=== PATIENT | female | born 1945 | race Caucasian/White ===

== ENCOUNTER 2017-04-20 09:19 | Outpatient (CLI) | payer MEDICARE | END 2017-04-20 09:20 | disposition home or self-care (01) | LOC: LAB.F 09:19 | PROVIDERS: ATTEND Obstetrics & Gynecology | DX: C56.1 Malignant neoplasm of right ovary (principal) | CPT/HCPCS: 36415; 86304 ==

== ENCOUNTER → 2017-05-25 | Outpatient (CLI) | payer MEDICARE ==
[2017-05-25 18:55] LABS: CALCIUM 9.4 mg/dL (8.5-10.3); CREATININE 1.7 mg/dL (0.4-1.0); POTASSIUM 4.2 mmol/L (3.5-5.0)
== END ==
LOC: LAB.F 08:00
PROVIDERS: ATTEND Internal Medicine Nephrology
DX: I12.9 Hypertensive chronic kidney disease with stage 1 through stage 4 chronic kidney disease, or unspecified chronic kidney disease (principal); N18.3 Chronic kidney disease, stage 3 (moderate); E11.9 Type 2 diabetes mellitus without complications; E87.5 Hyperkalemia; E55.9 Vitamin D deficiency, unspecified; E21.3 Hyperparathyroidism, unspecified; D64.9 Anemia, unspecified; E78.5 Hyperlipidemia, unspecified
CPT/HCPCS: 36415; 80069

== ENCOUNTER 2017-06-03 10:22 | Outpatient (CLI) | payer MEDICARE ==
[2017-06-03 18:34] LABS: BASOPHILS % (AUTO) 0.6 %; EOSINOPHILS # (AUTO) 0.2 10^3/uL (0.0-0.7); EOSINOPHILS % (AUTO) 3.2 %; HCT - HEMATOCRIT 27.8 % (37.0-47.0); HGB - HEMOGLOBIN 9.4 g/dL (12.0-16.0); LYMPHOCYTES # (AUTO) 1.6 10^3/uL (1.5-3.5); LYMPHOCYTES % (AUTO) 24.9 %; MEAN CORPUSCULAR HGB CONC 33.7 g/dL (32.0-36.0); MEAN CORPUSCULAR VOLUME 106.6 fL (81.0-99.0); MEAN PLATELET VOLUME 9.6 fL (7.9-10.8); MONOCYTES # (AUTO) 0.8 10^3/uL (0.0-1.0); MONOCYTES % (AUTO) 11.8 %; NEUTROPHILS # (AUTO) 3.9 10^3/uL (1.5-6.6); NEUTROPHILS % (AUTO) 59.5 %; RED BLOOD COUNT 2.61 10^6/uL (4.20-5.40); RED CELL DISTRIBUTION WIDTH 15.4 % (12.0-15.0); UNCORRECTED WHITE BLOOD COUNT 6.5 x10^3/uL; WHITE BLOOD COUNT 6.5 x10^3/uL (4.8-10.8)
[2017-06-03 18:36] LABS: ALBUMIN/GLOBULIN RATIO 1.1 (1.0-2.2); BILIRUBIN,TOTAL 0.5 mg/dL (0.2-1.0); BUN - BLOOD UREA NITROGEN 37 mg/dL (6-20); CALCIUM 9.6 mg/dL (8.5-10.3); CARBON DIOXIDE - CO2 25 mmol/L (21-32); CHLORIDE 103 mmol/L (101-111); CHOL/HDL RATIO 3.7 (<4.4); CHOLESTEROL 144 mg/dL; CREATININE 1.3 mg/dL (0.4-1.0); GFR - MDRD 40 (>89); GLUCOSE 104 mg/dL (70-100); HDL CHOLESTEROL 39 mg/dL; LDL/HDL RATIO 1.7 (<4.4); PHOSPHORUS 4.6 mg/dL (2.5-4.6); POTASSIUM 4.6 mmol/L (3.5-5.0); SODIUM 137 mmol/L (135-145); TOTAL PROTEIN 7.8 g/dL (6.7-8.2); TRIGLYCERIDES 191 mg/dL; URIC ACID 4.6 mg/dL (2.6-7.2); VLDL CHOLESTEROL 38 mg/dL
[2017-06-03 19:35] LABS: HEMOGLOBIN A1C 0.44 g/dL
== END 2017-06-03 10:23 | disposition home or self-care (01) ==
LOC: LAB.F 10:22
PROVIDERS: ATTEND Internal Medicine Nephrology
DX: C56.1 Malignant neoplasm of right ovary (principal); N18.3 Chronic kidney disease, stage 3 (moderate); E11.9 Type 2 diabetes mellitus without complications; I12.9 Hypertensive chronic kidney disease with stage 1 through stage 4 chronic kidney disease, or unspecified chronic kidney disease; E87.5 Hyperkalemia; E55.9 Vitamin D deficiency, unspecified; E21.3 Hyperparathyroidism, unspecified; D64.9 Anemia, unspecified; E78.5 Hyperlipidemia, unspecified; K80.20 Calculus of gallbladder without cholecystitis without obstruction
CPT/HCPCS: 36415; 80053; 80061; 80069; 82306; 82570; 83036; 83970; 84156; 84550; 85025; 86304

== ENCOUNTER 2017-07-04 11:29 | Outpatient (CLI) | payer MEDICARE | END 2017-07-04 11:30 | disposition home or self-care (01) | LOC: LAB.F 11:29 | PROVIDERS: ATTEND Obstetrics & Gynecology | DX: C56.1 Malignant neoplasm of right ovary (principal) | CPT/HCPCS: 36415; 86304 ==

== ENCOUNTER 2018-01-27 11:26 | Outpatient (CLI) | payer MEDICARE ==
[2018-01-27 17:53] LABS: BASOPHILS % (AUTO) 0.7 %; EOSINOPHILS # (AUTO) 0.1 10^3/uL (0.0-0.7); EOSINOPHILS % (AUTO) 1.6 %; HGB - HEMOGLOBIN 9.6 g/dL (12.0-16.0); LYMPHOCYTES # (AUTO) 1.8 10^3/uL (1.5-3.5); LYMPHOCYTES % (AUTO) 38.1 %; MEAN CORPUSCULAR HEMOGLOBIN 34.3 pg (27.0-31.0); MEAN CORPUSCULAR HGB CONC 32.6 g/dL (32.0-36.0); MEAN CORPUSCULAR VOLUME 105.3 fL (81.0-99.0); MEAN PLATELET VOLUME 9.3 fL (7.9-10.8); MONOCYTES # (AUTO) 0.3 10^3/uL (0.0-1.0); MONOCYTES % (AUTO) 6.2 %; NEUTROPHILS # (AUTO) 2.6 10^3/uL (1.5-6.6); NEUTROPHILS % (AUTO) 53.4 %; PLT - PLATELET COUNT 136 10^3/uL (130-450); RED BLOOD COUNT 2.81 10^6/uL (4.20-5.40); WHITE BLOOD COUNT 4.8 x10^3/uL (4.8-10.8)
[2018-01-27 18:22] LABS: ALBUMIN 3.5 g/dL (3.2-5.5); ALKALINE PHOSPHATASE 53 IU/L (42-121); ALT ALANINE AMINOTRANSFERASE 23 IU/L (10-60); AST ASPARTATE AMINOTRANSFERASE 21 IU/L (10-42); BILIRUBIN,TOTAL 0.4 mg/dL (0.2-1.0); BUN - BLOOD UREA NITROGEN 48 mg/dL (6-20); CALCIUM 9.9 mg/dL (8.5-10.3); CARBON DIOXIDE - CO2 28 mmol/L (21-32); CHLORIDE 99 mmol/L (101-111); CHOL/HDL RATIO 3.9 (<4.4); CHOLESTEROL 177 mg/dL; CREATININE 1.3 mg/dL (0.4-1.0); GFR - MDRD 40 (>89); GLUCOSE 128 mg/dL (70-100); HDL CHOLESTEROL 45 mg/dL; LDL CHOLESTEROL,CALCULATED 72 mg/dL; LDL/HDL RATIO 1.6 (<4.4); PHOSPHORUS 4.8 mg/dL (2.5-4.6); SODIUM 135 mmol/L (135-145); TOTAL PROTEIN 7.1 g/dL (6.7-8.2); URIC ACID 4.3 mg/dL (2.6-7.2); VLDL CHOLESTEROL 60 mg/dL
[2018-01-27 18:58] LABS: CREATININE,URINE 71.3 mg/dL; PROTEIN/CREATININE RATIO,URINE 0.1 (<=0.2)
[2018-01-27 19:56] LABS: HB2 TOTAL 10.2 g/dL; HEMOGLOBIN A1C 0.47 g/dL; HEMOGLOBIN A1C % 6.4 % (4.6-6.2)
== END 2018-01-27 11:27 | disposition home or self-care (01) ==
LOC: LAB.F 11:26
PROVIDERS: ATTEND Internal Medicine Nephrology
DX: C56.1 Malignant neoplasm of right ovary (principal); N18.3 Chronic kidney disease, stage 3 (moderate); E11.9 Type 2 diabetes mellitus without complications; I12.9 Hypertensive chronic kidney disease with stage 1 through stage 4 chronic kidney disease, or unspecified chronic kidney disease; E87.5 Hyperkalemia; E55.9 Vitamin D deficiency, unspecified; E21.3 Hyperparathyroidism, unspecified; D64.9 Anemia, unspecified; E78.5 Hyperlipidemia, unspecified
CPT/HCPCS: 36415; 80053; 80061; 82306; 82570; 83036; 83721; 83970; 84100; 84156; 84550; 85025

== ENCOUNTER 2018-03-03 11:04 | Outpatient (CLI) | payer MEDICARE ==
[2018-03-03 17:04] LABS: BASOPHILS % (AUTO) 0.6 %; EOSINOPHILS # (AUTO) 0.1 10^3/uL (0.0-0.7); HGB - HEMOGLOBIN 10.7 g/dL (12.0-16.0); LYMPHOCYTES # (AUTO) 1.8 10^3/uL (1.5-3.5); LYMPHOCYTES % (AUTO) 34.1 %; MEAN CORPUSCULAR HEMOGLOBIN 34.1 pg (27.0-31.0); MEAN CORPUSCULAR VOLUME 103.3 fL (81.0-99.0); MEAN PLATELET VOLUME 9.5 fL (7.9-10.8); MONOCYTES # (AUTO) 0.5 10^3/uL (0.0-1.0); NEUTROPHILS # (AUTO) 2.8 10^3/uL (1.5-6.6); NEUTROPHILS % (AUTO) 53.3 %; PLT - PLATELET COUNT 131 10^3/uL (130-450); RED BLOOD COUNT 3.13 10^6/uL (4.20-5.40); RED CELL DISTRIBUTION WIDTH 17.3 % (12.0-15.0); WHITE BLOOD COUNT 5.3 x10^3/uL (4.8-10.8)
== END 2018-03-03 11:05 | disposition home or self-care (01) ==
LOC: LAB.F 11:04
PROVIDERS: ATTEND Obstetrics & Gynecology
DX: C57.00 Malignant neoplasm of unspecified fallopian tube (principal)
CPT/HCPCS: 36415; 85025

== ENCOUNTER 2018-03-31 09:17 | Outpatient (CLI) | payer MEDICARE | END 2018-03-31 09:18 | disposition home or self-care (01) | LOC: LAB.F 09:17 | PROVIDERS: ATTEND Obstetrics & Gynecology | DX: C56.1 Malignant neoplasm of right ovary (principal) | CPT/HCPCS: 36415; 86304 ==

== ENCOUNTER 2018-04-28 10:06 | Outpatient (CLI) | payer MEDICARE ==
[2018-04-28 18:10] LABS: BASOPHILS % (AUTO) 0.4 %; EOSINOPHILS % (AUTO) 0.8 %; HGB - HEMOGLOBIN 8.8 g/dL (12.0-16.0); LYMPHOCYTES # (AUTO) 1.7 10^3/uL (1.5-3.5); LYMPHOCYTES % (AUTO) 40.3 %; MEAN CORPUSCULAR HGB CONC 33.7 g/dL (32.0-36.0); MEAN CORPUSCULAR VOLUME 106.9 fL (81.0-99.0); MEAN PLATELET VOLUME 9.5 fL (7.9-10.8); MONOCYTES # (AUTO) 0.5 10^3/uL (0.0-1.0); MONOCYTES % (AUTO) 12.3 %; NEUTROPHILS # (AUTO) 1.9 10^3/uL (1.5-6.6); NEUTROPHILS % (AUTO) 46.2 %; PLT - PLATELET COUNT 109 10^3/uL (130-450); RED BLOOD COUNT 2.44 10^6/uL (4.20-5.40); RED CELL DISTRIBUTION WIDTH 20.9 % (12.0-15.0); WHITE BLOOD COUNT 4.1 x10^3/uL (4.8-10.8)
[2018-04-28 18:56] LABS: PLATELET MORPHOLOGY NORMAL APPEARANCE (NORMAL)
[2018-04-28 18:57] LABS: PLATELET ESTIMATE, MANUAL DECREASED (<130,000) (NORMAL)
== END 2018-04-28 10:07 | disposition home or self-care (01) ==
LOC: LAB.F 10:06
PROVIDERS: ATTEND Obstetrics & Gynecology
DX: C57.00 Malignant neoplasm of unspecified fallopian tube (principal)
CPT/HCPCS: 36415; 85025

== ENCOUNTER 2018-05-26 14:23 | Outpatient (CLI) | payer MEDICARE ==
[2018-05-26 17:29] LABS: BASOPHILS % (AUTO) 0.6 %; EOSINOPHILS % (AUTO) 0.8 %; HGB - HEMOGLOBIN 8.6 g/dL (12.0-16.0); LYMPHOCYTES % (AUTO) 40.8 %; MEAN CORPUSCULAR HEMOGLOBIN 36.3 pg (27.0-31.0); MEAN CORPUSCULAR HGB CONC 33.8 g/dL (32.0-36.0); MEAN CORPUSCULAR VOLUME 107.5 fL (81.0-99.0); MEAN PLATELET VOLUME 9.5 fL (7.9-10.8); MONOCYTES # (AUTO) 0.4 10^3/uL (0.0-1.0); MONOCYTES % (AUTO) 8.5 %; NEUTROPHILS # (AUTO) 2.5 10^3/uL (1.5-6.6); NEUTROPHILS % (AUTO) 49.3 %; PLT - PLATELET COUNT 116 10^3/uL (130-450); RED BLOOD COUNT 2.36 10^6/uL (4.20-5.40); RED CELL DISTRIBUTION WIDTH 22.8 % (12.0-15.0)
[2018-05-26 18:16] LABS: PLATELET ESTIMATE, MANUAL DECREASED (<130,000) (NORMAL); PLATELET MORPHOLOGY NORMAL APPEARANCE (NORMAL)
== END 2018-05-26 14:24 | disposition home or self-care (01) ==
LOC: LAB.F 14:23
PROVIDERS: ATTEND Obstetrics & Gynecology
DX: C57.00 Malignant neoplasm of unspecified fallopian tube (principal)
CPT/HCPCS: 36415; 85025

== ENCOUNTER 2018-06-23 10:14 | Outpatient (CLI) | payer MEDICARE ==
[2018-06-23 18:26] LABS: BASOPHILS % (AUTO) 0.4 %; EOSINOPHILS % (AUTO) 0.7 %; HGB - HEMOGLOBIN 8.9 g/dL (12.0-16.0); LYMPHOCYTES % (AUTO) 42.9 %; MEAN CORPUSCULAR HEMOGLOBIN 37.1 pg (27.0-31.0); MEAN CORPUSCULAR HGB CONC 34.3 g/dL (32.0-36.0); MEAN PLATELET VOLUME 9.2 fL (7.9-10.8); MONOCYTES # (AUTO) 0.5 10^3/uL (0.0-1.0); MONOCYTES % (AUTO) 10.3 %; NEUTROPHILS # (AUTO) 2.1 10^3/uL (1.5-6.6); NEUTROPHILS % (AUTO) 45.7 %; PLT - PLATELET COUNT 128 10^3/uL (130-450); RED BLOOD COUNT 2.39 10^6/uL (4.20-5.40); RED CELL DISTRIBUTION WIDTH 23.3 % (12.0-15.0); WHITE BLOOD COUNT 4.6 x10^3/uL (4.8-10.8)
[2018-06-23 20:00] LABS: PLATELET ESTIMATE, MANUAL DECREASED (<130,000) (NORMAL); PLATELET MORPHOLOGY 1+ LARGE PLATELETS (NORMAL)
== END 2018-06-23 10:15 | disposition home or self-care (01) ==
LOC: LAB.F 10:14
PROVIDERS: ATTEND Obstetrics & Gynecology
DX: C57.00 Malignant neoplasm of unspecified fallopian tube (principal)
CPT/HCPCS: 36415; 85025

== ENCOUNTER 2018-08-08 10:15 | Outpatient (CLI) | payer MEDICARE ==
[2018-08-08 18:08] LABS: BASOPHILS % (AUTO) 0.7 %; EOSINOPHILS # (AUTO) 0.2 10^3/uL (0.0-0.7); EOSINOPHILS % (AUTO) 4.1 %; HGB - HEMOGLOBIN 8.8 g/dL (12.0-16.0); LYMPHOCYTES # (AUTO) 1.7 10^3/uL (1.5-3.5); MEAN CORPUSCULAR HEMOGLOBIN 38.4 pg (27.0-31.0); MEAN CORPUSCULAR HGB CONC 33.2 g/dL (32.0-36.0); MEAN CORPUSCULAR VOLUME 115.5 fL (81.0-99.0); MEAN PLATELET VOLUME 9.5 fL (7.9-10.8); MONOCYTES # (AUTO) 0.8 10^3/uL (0.0-1.0); NEUTROPHILS # (AUTO) 2.7 10^3/uL (1.5-6.6); NEUTROPHILS % (AUTO) 50.2 %; PLT - PLATELET COUNT 159 10^3/uL (130-450); RED BLOOD COUNT 2.29 10^6/uL (4.20-5.40); RED CELL DISTRIBUTION WIDTH 19.4 % (12.0-15.0); WHITE BLOOD COUNT 5.4 x10^3/uL (4.8-10.8)
[2018-08-08 20:42] LABS: PLATELET ESTIMATE, MANUAL NORMAL (130-450,000) (NORMAL); PLATELET MORPHOLOGY NORMAL APPEARANCE (NORMAL); RBC MORPHOLOGY (MULTIPLE) 2+ MACROCYTOSIS (NORMAL)
== END 2018-08-08 10:16 | disposition home or self-care (01) ==
LOC: LAB.F 10:15
PROVIDERS: ATTEND Obstetrics & Gynecology
DX: C56.1 Malignant neoplasm of right ovary (principal)
CPT/HCPCS: 36415; 85025; 86304

== ENCOUNTER 2018-09-08 10:52 | Outpatient (CLI) | payer MEDICARE ==
[2018-09-08 17:48] LABS: BASOPHILS % (AUTO) 0.6 %; EOSINOPHILS # (AUTO) 0.2 10^3/uL (0.0-0.7); EOSINOPHILS % (AUTO) 3.2 %; HGB - HEMOGLOBIN 9.2 g/dL (12.0-16.0); LYMPHOCYTES # (AUTO) 1.8 10^3/uL (1.5-3.5); MEAN CORPUSCULAR HEMOGLOBIN 38.2 pg (27.0-31.0); MEAN CORPUSCULAR HGB CONC 32.9 g/dL (32.0-36.0); MEAN CORPUSCULAR VOLUME 116.1 fL (81.0-99.0); MEAN PLATELET VOLUME 9.5 fL (7.9-10.8); MONOCYTES # (AUTO) 0.7 10^3/uL (0.0-1.0); MONOCYTES % (AUTO) 11.6 %; NEUTROPHILS % (AUTO) 52.6 %; PLT - PLATELET COUNT 166 10^3/uL (130-450); RED CELL DISTRIBUTION WIDTH 14.4 % (12.0-15.0); WHITE BLOOD COUNT 5.7 x10^3/uL (4.8-10.8)
== END 2018-09-08 10:53 | disposition home or self-care (01) ==
LOC: LAB.F 10:52
PROVIDERS: ATTEND Obstetrics & Gynecology
DX: C56.1 Malignant neoplasm of right ovary (principal)
CPT/HCPCS: 36415; 85025; 86304

== ENCOUNTER 2019-02-19 10:00 | Outpatient (CLI) | payer MEDICARE ==
[2019-02-19 18:41] LABS: ALBUMIN 3.3 g/dL (3.2-5.5); CALCIUM 9.3 mg/dL (8.5-10.3); CREATININE 1.5 mg/dL (0.4-1.0); PHOSPHORUS 3.6 mg/dL (2.5-4.6); URIC ACID 4.6 mg/dL (2.6-7.2)
== END 2019-02-19 10:01 | disposition home or self-care (01) ==
LOC: LAB.F 10:00
PROVIDERS: ATTEND Internal Medicine Nephrology
DX: I12.9 Hypertensive chronic kidney disease with stage 1 through stage 4 chronic kidney disease, or unspecified chronic kidney disease (principal); N18.3 Chronic kidney disease, stage 3 (moderate); N17.9 Acute kidney failure, unspecified
CPT/HCPCS: 36415; 80069; 84550

== ENCOUNTER 2019-03-01 10:35 | Outpatient (CLI) | payer MEDICARE ==
[2019-03-01 17:32] LABS: BASOPHILS % (AUTO) 0.6 %; EOSINOPHILS # (AUTO) 0.1 10^3/uL (0.0-0.7); EOSINOPHILS % (AUTO) 1.6 %; HGB - HEMOGLOBIN 9.9 g/dL (12.0-16.0); LYMPHOCYTES # (AUTO) 1.1 10^3/uL (1.5-3.5); LYMPHOCYTES % (AUTO) 17.1 %; MEAN CORPUSCULAR HEMOGLOBIN 35.8 pg (27.0-31.0); MEAN CORPUSCULAR VOLUME 108.4 fL (81.0-99.0); MEAN PLATELET VOLUME 8.7 fL (7.9-10.8); MONOCYTES # (AUTO) 0.8 10^3/uL (0.0-1.0); MONOCYTES % (AUTO) 12.2 %; NEUTROPHILS # (AUTO) 4.4 10^3/uL (1.5-6.6); NEUTROPHILS % (AUTO) 68.5 %; PLT - PLATELET COUNT 206 10^3/uL (130-450); RED BLOOD COUNT 2.78 10^6/uL (4.20-5.40); RED CELL DISTRIBUTION WIDTH 15.2 % (12.0-15.0); WHITE BLOOD COUNT 6.5 x10^3/uL (4.8-10.8)
[2019-03-01 17:34] LABS: ALBUMIN 3.4 g/dL (3.2-5.5); ALKALINE PHOSPHATASE 78 IU/L (42-121); ALT ALANINE AMINOTRANSFERASE 23 IU/L (10-60); AST ASPARTATE AMINOTRANSFERASE 27 IU/L (10-42); BILIRUBIN,TOTAL 0.4 mg/dL (0.2-1.0); BUN - BLOOD UREA NITROGEN 45 mg/dL (6-20); CALCIUM 9.9 mg/dL (8.5-10.3); CARBON DIOXIDE - CO2 25 mmol/L (21-32); CHLORIDE 105 mmol/L (101-111); CREATININE 1.6 mg/dL (0.4-1.0); GFR - MDRD 32 (>89); GLUCOSE 135 mg/dL (70-100); MAGNESIUM 2.3 mg/dL (1.7-2.8); PHOSPHORUS 3.9 mg/dL (2.5-4.6); SODIUM 141 mmol/L (135-145); TOTAL PROTEIN 8.3 g/dL (6.7-8.2)
[2019-03-01 18:19] LABS: BILIRUBIN,DIRECT < 0.1 mg/dL (0.1-0.5)
== END 2019-03-01 10:36 | disposition home or self-care (01) ==
LOC: LAB.F 10:35
PROVIDERS: ATTEND Nurse Practitioner Women's Health
DX: C56.2 Malignant neoplasm of left ovary (principal)
CPT/HCPCS: 36415; 80048; 80076; 83615; 83735; 84100; 85025; 86304

== ENCOUNTER 2019-03-15 13:22 | Outpatient (CLI) | payer MEDICARE ==
[2019-03-15 17:30] LABS: ALBUMIN 3.5 g/dL (3.2-5.5); CALCIUM 9.3 mg/dL (8.5-10.3); CREATININE 1.7 mg/dL (0.4-1.0); PHOSPHORUS 4.2 mg/dL (2.5-4.6)
== END 2019-03-15 13:23 | disposition home or self-care (01) ==
LOC: LAB.F 13:22
PROVIDERS: ATTEND Internal Medicine Nephrology
DX: I12.9 Hypertensive chronic kidney disease with stage 1 through stage 4 chronic kidney disease, or unspecified chronic kidney disease (principal); N18.3 Chronic kidney disease, stage 3 (moderate); N17.9 Acute kidney failure, unspecified
CPT/HCPCS: 36415; 80069

== ENCOUNTER 2019-04-05 09:00 | Outpatient (CLI) | payer MEDICARE | END 2019-04-05 23:59 | disposition home or self-care (01) | LOC: LAB.F 09:00 | PROVIDERS: ATTEND Obstetrics & Gynecology | DX: C56.1 Malignant neoplasm of right ovary (principal) | CPT/HCPCS: 36415; 86304 ==

== ENCOUNTER 2019-05-04 10:20 | Outpatient (CLI) | payer MEDICARE | END 2019-05-04 10:21 | disposition home or self-care (01) | LOC: LAB.S 10:20 | PROVIDERS: ATTEND Obstetrics & Gynecology | DX: C56.1 Malignant neoplasm of right ovary (principal) | CPT/HCPCS: 36415; 86304 ==

== ENCOUNTER 2019-08-06 11:08 | Outpatient (CLI) | payer MEDICARE | END 2019-08-06 11:09 | disposition home or self-care (01) | LOC: LAB.S 11:08 | PROVIDERS: ATTEND Nurse Practitioner Women's Health | DX: C56.1 Malignant neoplasm of right ovary (principal) | CPT/HCPCS: 36415; 86304 ==

== ENCOUNTER 2019-10-23 09:24 | Outpatient (CLI) | payer MEDICARE | END 2019-10-23 09:25 | disposition home or self-care (01) | LOC: LAB.S 09:24 | PROVIDERS: ATTEND Physician Assistant Medical | DX: C56.9 Malignant neoplasm of unspecified ovary (principal) | CPT/HCPCS: 36415; 86304 ==

== ENCOUNTER 2019-12-26 09:28 | Outpatient (CLI) | payer MEDICARE ==
[2019-12-26 17:37] LABS: HGB - HEMOGLOBIN 10.4 g/dL (12.0-16.0)
[2019-12-26 17:42] LABS: ALBUMIN 3.9 g/dL (3.2-5.5); CALCIUM 9.6 mg/dL (8.5-10.3); CREATININE 1.7 mg/dL (0.4-1.0); PHOSPHORUS 4.2 mg/dL (2.5-4.6); URIC ACID 6.8 mg/dL (2.6-7.2)
[2019-12-26 17:43] LABS: CREATININE,URINE 129.3 mg/dL; PROTEIN/CREATININE RATIO,URINE 0.3 (<=0.2)
== END 2019-12-26 09:29 | disposition home or self-care (01) ==
LOC: LAB.S 09:28
PROVIDERS: ATTEND Internal Medicine Nephrology
DX: C56.9 Malignant neoplasm of unspecified ovary (principal); I12.9 Hypertensive chronic kidney disease with stage 1 through stage 4 chronic kidney disease, or unspecified chronic kidney disease; N17.9 Acute kidney failure, unspecified; N18.3 Chronic kidney disease, stage 3 (moderate); E79.0 Hyperuricemia without signs of inflammatory arthritis and tophaceous disease
CPT/HCPCS: 36415; 80069; 82570; 83970; 84156; 84550; 85014; 85018; 86304

== ENCOUNTER 2020-11-19 11:44 | Outpatient (CLI) | payer MEDICARE ==
[2020-11-19 14:29] LABS: HGB - HEMOGLOBIN 9.5 g/dL (12.0-16.0)
[2020-11-19 14:54] LABS: ALBUMIN 3.6 g/dL (3.2-5.5); CALCIUM 9.4 mg/dL (8.5-10.3); CREATININE 2.2 mg/dL (0.4-1.0); MAGNESIUM 2.5 mg/dL (1.7-2.8); PHOSPHORUS 4.5 mg/dL (2.5-4.6)
[2020-11-19 14:59] LABS: CREATININE,URINE 83.8 mg/dL; PROTEIN/CREATININE RATIO,URINE 0.5 (<=0.2)
== END 2020-11-19 11:45 | disposition home or self-care (01) ==
LOC: LAB.S 11:44
PROVIDERS: ATTEND Internal Medicine Nephrology
DX: I12.9 Hypertensive chronic kidney disease with stage 1 through stage 4 chronic kidney disease, or unspecified chronic kidney disease (principal); N18.4 Chronic kidney disease, stage 4 (severe); D63.1 Anemia in chronic kidney disease
CPT/HCPCS: 36415; 80069; 82570; 83735; 84156; 85014; 85018

== ENCOUNTER 2020-12-18 09:34 | Outpatient (CLI) | payer MEDICARE ==
[2020-12-18 14:46] LABS: HCT - HEMATOCRIT 30.7 % (37.0-47.0); HGB - HEMOGLOBIN 9.7 g/dL (12.0-16.0)
[2020-12-18 15:39] LABS: ALBUMIN 3.5 g/dL (3.2-5.5); CALCIUM 9.2 mg/dL (8.5-10.3); CREATININE 2.1 mg/dL (0.4-1.0); PHOSPHORUS 4.3 mg/dL (2.5-4.6); POTASSIUM 3.8 mmol/L (3.5-5.0)
== END 2020-12-18 09:35 | disposition home or self-care (01) ==
LOC: LAB.S 09:34
PROVIDERS: ATTEND Internal Medicine Nephrology
DX: I12.9 Hypertensive chronic kidney disease with stage 1 through stage 4 chronic kidney disease, or unspecified chronic kidney disease (principal); N18.32 Chronic kidney disease, stage 3b; D63.1 Anemia in chronic kidney disease
CPT/HCPCS: 36415; 80069; 85014; 85018

== ENCOUNTER 2021-03-31 09:25 | Outpatient (CLI) | payer MEDICARE ==
[2021-03-31 15:09] LABS: ABSOLUTE RETICS # AUTO 0.049 10^6/uL (0.020-0.110); BASOPHILS % (AUTO) 0.7 %; EOSINOPHILS # (AUTO) 0.2 10^3/uL (0.0-0.7); EOSINOPHILS % (AUTO) 4.4 %; HCT - HEMATOCRIT 28.6 % (37.0-47.0); HGB - HEMOGLOBIN 9.3 g/dL (12.0-16.0); LYMPHOCYTES # (AUTO) 1.3 10^3/uL (1.5-3.5); LYMPHOCYTES % (AUTO) 24.2 %; MEAN CORPUSCULAR HGB CONC 32.5 g/dL (32.0-36.0); MEAN CORPUSCULAR VOLUME 110.9 fL (81.0-99.0); MEAN PLATELET VOLUME 10.8 fL (7.9-10.8); MONOCYTES # (AUTO) 0.6 10^3/uL (0.0-1.0); MONOCYTES % (AUTO) 11.8 %; NEUTROPHILS # (AUTO) 3.2 10^3/uL (1.5-6.6); NEUTROPHILS % (AUTO) 58.3 %; PLT - PLATELET COUNT 191 10^3/uL (130-450); RED BLOOD COUNT 2.58 10^6/uL (4.20-5.40); RED CELL DISTRIBUTION WIDTH 13.9 % (12.0-15.0); RETICULOCYTE COUNT % (AUTO) 1.88 % (0.5-2.3); WHITE BLOOD COUNT 5.4 x10^3/uL (4.8-10.8)
[2021-03-31 15:16] LABS: SLIDE REVIEW? Indicated
[2021-03-31 15:36] LABS: PLATELET ESTIMATE, MANUAL NORMAL (130-450,000) (NORMAL); PLATELET MORPHOLOGY NORMAL APPEARANCE (NORMAL); RBC MORPHOLOGY (MULTIPLE) 1+ MACROCYTOSIS (NORMAL); WBC MORPHOLOGY (MULTIPLE) NORMAL APPEARANCE (NORMAL)
== END 2021-03-31 09:26 | disposition home or self-care (01) ==
LOC: LAB.S 09:25
DX: D64.9 Anemia, unspecified (principal)
CPT/HCPCS: 36415; 82525; 83615; 84443; 85025; 85045

== ENCOUNTER 2021-04-28 11:42 | Outpatient (CLI) | payer MEDICARE ==
[2021-04-28 14:44] LABS: HCT - HEMATOCRIT 28.7 % (37.0-47.0); HGB - HEMOGLOBIN 9.1 g/dL (12.0-16.0)
[2021-04-28 15:02] LABS: ALBUMIN 3.7 g/dL (3.2-5.5); CALCIUM 9.1 mg/dL (8.5-10.3); CREATININE 2.5 mg/dL (0.4-1.0); MAGNESIUM 2.4 mg/dL (1.7-2.8); PHOSPHORUS 4.1 mg/dL (2.5-4.6); POTASSIUM 4.2 mmol/L (3.5-5.0)
[2021-04-28 15:11] LABS: PROTEIN/CREATININE RATIO,URINE 0.5 (<=0.2)
== END 2021-04-28 11:43 | disposition home or self-care (01) ==
LOC: LAB.S 11:42
PROVIDERS: ATTEND Internal Medicine Nephrology
DX: I12.9 Hypertensive chronic kidney disease with stage 1 through stage 4 chronic kidney disease, or unspecified chronic kidney disease (principal); N18.4 Chronic kidney disease, stage 4 (severe)
CPT/HCPCS: 36415; 80069; 82570; 83735; 83970; 84156; 85014; 85018

== ENCOUNTER 2021-12-23 11:10 | Outpatient (CLI) | payer MEDICARE ==
[2021-12-23 15:17] LABS: HGB - HEMOGLOBIN 8.8 g/dL (12.0-16.0); MEAN CORPUSCULAR HGB CONC 32.6 g/dL (32.0-36.0); MEAN CORPUSCULAR VOLUME 113.4 fL (81.0-99.0); MEAN PLATELET VOLUME 10.5 fL (7.9-10.8); RED BLOOD COUNT 2.38 10^6/uL (4.20-5.40); RED CELL DISTRIBUTION WIDTH 13.8 % (12.0-15.0); WHITE BLOOD COUNT 5.6 x10^3/uL (4.8-10.8)
[2021-12-23 15:23] LABS: BILIRUBIN,URINE NEGATIVE (NEGATIVE); GLUCOSE, URINE (UA) NEGATIVE (NEGATIVE); KETONES,URINE (UA) NEGATIVE (NEGATIVE); LEUKOCYTE ESTERASE, URINE NEGATIVE (NEGATIVE); NITRITE,URINE NEGATIVE (NEGATIVE); OCCULT BLOOD,URINE NEGATIVE (NEGATIVE); PROTEIN,URINE 30 mg/dL (NEGATIVE); UROBILINOGEN,URINE 0.2 (NORMAL) E.U./dL (NORMAL)
[2021-12-23 15:31] LABS: ALBUMIN 3.6 g/dL (3.2-5.5); ALKALINE PHOSPHATASE 115 IU/L (42-121); ALT ALANINE AMINOTRANSFERASE 17 IU/L (10-60); AST ASPARTATE AMINOTRANSFERASE 21 IU/L (10-42); BILIRUBIN,TOTAL 0.7 mg/dL (0.2-1.0); BUN - BLOOD UREA NITROGEN 31 mg/dL (6-20); CALCIUM 9.4 mg/dL (8.5-10.3); CARBON DIOXIDE - CO2 25 mmol/L (21-32); CHLORIDE 101 mmol/L (101-111); CREATININE 2.2 mg/dL (0.4-1.0); GFR - MDRD 22 (>89); GLUCOSE 93 mg/dL (70-100); MAGNESIUM 2.1 mg/dL (1.7-2.8); PHOSPHORUS 4.3 mg/dL (2.5-4.6); POTASSIUM 4.2 mmol/L (3.5-5.0); SODIUM 137 mmol/L (135-145); TOTAL PROTEIN 7.4 g/dL (6.7-8.2)
[2021-12-23 15:32] LABS: BILIRUBIN,DIRECT < 0.1 mg/dL (0.1-0.5)
[2021-12-23 15:43] LABS: CLARITY,URINE CLEAR (CLEAR); RBC,URINE 0-5 /HPF (0-5); WBC,URINE 0-3 /HPF (0-5)
[2021-12-23 15:44] LABS: BACTERIA,URINE None Seen /HPF (None Seen); SQUAMOUS EPITHELIAL CELL,UR MANY Squamous (<= Few)
== END 2021-12-23 11:11 | disposition home or self-care (01) ==
LOC: LAB.S 11:10
PROVIDERS: ATTEND Internal Medicine Nephrology
DX: N18.4 Chronic kidney disease, stage 4 (severe) (principal)
CPT/HCPCS: 36415; 80048; 80076; 81001; 82306; 83735; 83970; 84100; 85027; 87086

== ENCOUNTER 2022-02-02 08:39 | Outpatient (CLI) | payer MEDICARE | END 2022-02-02 08:40 | disposition short-term general hospital (02) | LOC: EMS 08:39 | DX: R06.09 Other forms of dyspnea (principal); R06.2 Wheezing; R05.9 Cough, unspecified | CPT/HCPCS: A0425; A0427 ==